=== PATIENT | female | born 1985 | race Caucasian/White ===

== ENCOUNTER 2016-07-04 12:30 | Emergency (ER) | payer MEDICAID ==
--- NOTE | 2016-07-04 12:45 | EDPHY ---
HPI/HX/ROS/PE/MDM Narrative: CHIEF COMPLAINT: Multiple syncopal episodes, flu-like symptoms. HPI: The patient is a 30-year-old female who presents via EMS after 2 syncopal episodes earlier today. She first passed out at 0500 this morning while walking to the bathroom. She later passed out again while sitting. She admits severe headache, sore throat, and photophobia She admits to recent sickness including myalgia, fatigue, and congestion. Today she developed a fever and cold sweats. She denies abdominal pain, vomiting, or other complaints. REVIEW OF SYSTEMS: Aside from elements discussed in the HPI, a comprehensive 10-point review of systems was reviewed and is negative. PMH: Orthopedic surgeries. SOCIAL HISTORY: Works for [employer]. PHYSICAL EXAM: General: Patient is alert, in no acute distress. ENT: Eyes are normal to inspection. ENT inspection normal. Neck: Normal inspection. Full range of motion. Respiratory: No respiratory distress. Breath sounds normal bilaterally. Cardiovascular: Regular rate and rhythm. Strong peripheral pulses. Abdomen: The abdomen is nontender to palpation. There are no peritoneal signs. There are normal bowel sounds. Back: Normal to inspection. No tenderness to palpation. Skin: Normal color. No rash. Warm and dry. Extremities: Normal appearance. Full range of motion. Neuro: Oriented x3. Normal motor function. Normal sensory function. Portions of this note were transcribed by an ED scribe. I personally performed the history, physical exam, and medical decision making; and confirm the accuracy of the information in the transcribed note. ED Course: 30-year-old female presents via EMS for multiple syncopal episodes. I met EMS on arrival. She passed out twice this morning, once while walking and once while sitting down. She has been sick recently with flu-like symptoms including fever, myalgia, and congestion. She denies vomiting or other complaints. An IV was established and labs ordered. Flu swab obtained. EKG obtained. 1L IV saline administered for hydration. EKG was ordered and interpreted by myself. Please see NEXAGE system for official reading. I reviewed the patient's laboratory studies. Flu swab is negative. Lab work is otherwise unremarkable. I have signed the patient out to Dr. Coker at 3pm. - Data Points Laboratory Results: Laboratory Results 07/04/16 12:30 07/04/16 12:30 07/04/16 07/04/16 07/04/16 12:30 12:30 12:30 WBC RBC Hgb Hct MCV MCH MCHC RDW Plt Count MPV Neut % (Auto) Lymph % (Auto) [place] % (Auto) Eos % (Auto) Baso % (Auto) Nucleat RBC Rel Count Absolute Neuts (auto) Absolute Lymphs (auto) Absolute Monos (auto) Absolute Eos (auto) Absolute Basos (auto) Absolute Nucleated RBC Immature Gran % Immature Gran # Sodium 137 mEq/L mEq/L (134-144) Potassium 4.3 mEq/L mEq/L (3.5-5.2) Chloride 98 mEq/L mEq/L (97-110) Carbon Dioxide 26 mEq/l mEq/l (22-31) Anion Gap 13 mEq/L mEq/L (8-16) BUN 11 mg/dL mg/dL (7-23) Creatinine 1.0 mg/dL mg/dL (0.6-1.0) Estimated GFR > 60 Glucose 122 mg/dL H mg/dL (70-100) Calcium 9.4 mg/dL mg/dL (8.5-10.4) Troponin I < 0.012 ng/mL ng/mL (0-0.034) Beta HCG, Qual Pending Influenza Typ A,B (DFA) NEGATIVE FOR FLU (NEGATIVE) 07/04/16 12:30 WBC 9.21 10^3/uL 10^3/uL (3.80-9.50) RBC 4.56 10^6/uL 10^6/uL (4.18-5.33) Hgb 13.4 g/dL g/dL (12.6-16.3) Hct 41.0 % % (38.0-47.0) MCV 89.9 fL fL (81.5-99.8) MCH 29.4 pg pg (27.9-34.1) MCHC 32.7 g/dL g/dL (32.4-36.7) RDW 13.5 % % (11.5-15.2) Plt Count 159 10^3/uL 10^3/uL (150-400) MPV 10.5 fL fL (8.7-11.7) Neut % (Auto) 82.8 % H % (39.3-74.2) Lymph % (Auto) 8.6 % L % (15.0-45.0) [place] % (Auto) 8.0 % % (4.5-13.0) Eos % (Auto) 0.1 % L % (0.6-7.6) Baso % (Auto) 0.2 % L % (0.3-1.7) Nucleat RBC Rel Count 0.0 % % (0.0-0.2) Absolute Neuts (auto) 7.62 10^3/uL H 10^3/uL (1.70-6.50) Absolute Lymphs (auto) 0.79 10^3/uL L 10^3/uL (1.00-3.00) Absolute Monos (auto) 0.74 10^3/uL 10^3/uL (0.30-0.80) Absolute Eos (auto) 0.01 10^3/uL L 10^3/uL (0.03-0.40) Absolute Basos (auto) 0.02 10^3/uL 10^3/uL (0.02-0.10) Absolute Nucleated RBC 0.00 10^3/uL 10^3/uL (0-0.01) Immature Gran % 0.3 % % (0.0-1.1) Immature Gran # 0.03 10^3/uL 10^3/uL (0.00-0.10) Sodium Potassium Chloride Carbon Dioxide Anion Gap BUN Creatinine Estimated GFR Glucose Calcium Troponin I Beta HCG, Qual Influenza Typ A,B (DFA) Medications Given: Discontinued Medications Acetaminophen (Tylenol) 1,000 mg PO EDNOW ONE Stop: 07/04/16 14:16 Last Admin: 07/04/16 14:18 Dose: 1,000 mg Sodium Chloride (Ns) 1,000 mls @ 0 mls/hr IV ONCE ONE PRN Reason: Wide Open Stop: 07/04/16 13:00 Last Admin: 07/04/16 13:02 Dose: 1,000 mls Sodium Chloride (Ns) 1,000 mls @ 0 mls/hr IV ONCE ONE PRN Reason: Wide Open Stop: 07/04/16 14:11 Last Admin: 07/04/16 14:18 Dose: 1,000 mls Ondansetron HCl (Zofran) 4 mg IVP EDNOW ONE Stop: 07/04/16 14:48 Last Admin: 07/04/16 14:54 Dose: 4 mg General Time Seen by Provider: 07/04/16 12:36 Initial Vital Signs: Initial Vital Signs Temperature (C) 37.0 C 07/04/16 12:35 Heart Rate 79 07/04/16 12:35 Respiratory Rate 16 07/04/16 12:35 Blood Pressure 99/59 L 07/04/16 12:35 O2 Sat (%) 100 07/04/16 12:35 O2 Delivery Mode Room Air Allergies/Adverse Reactions: red dye Allergy (Severe, Verified 07/04/16 12:58) Anaphylaxis soy Allergy (Severe, Verified 07/04/16 12:58) Anaphylaxis Home Medications: Medication Instructions Recorded NK [No Known Home Meds] 07/04/16 Departure - Departure Disposition: Home, Routine, Self-Care Clinical Impression: Syncope Qualifiers: Syncope type: unspecified Qualified Code(s): R55 - Syncope and collapse Condition: Good Instructions: Syncope (ED) Additional Instructions: Drink plenty of fluids and be sure to get rest. Follow up with your primary care provider for reevaluation. If you need a primary care provider you have been given the telephone number of Dr. Messer , outpatient medicine. Return for any serious worsening of condition. Referrals: Megan Messer MD [Medical Doctor] - As per Instructions Report Scribed for: Krunal Baltazar Report Scribed by: Shiv Rees Date of Report: 07/04/16 Time of Report: 12:45
[2016-07-04] MEDS ORDERED: NS 1,000 ML IV ONE ×3 (12:59→16:20)
[2016-07-04 13:03] LABS: % IMMATURE GRANULYOCYTES 0.3 % (0.0-1.1); ABSOLUTE IMMATURE GRANULOCYTES 0.03 10^3/uL (0.00-0.10); ADD DIFF? NO; ADD MORPH? NO; ADD SCAN? NO; ATYPICAL LYMPHOCYTE FLAG 0 (0-99); FRAGMENT RBC FLAG 0 (0-99); HEMOGLOBIN 13.4 g/dL (12.6-16.3); LEFT SHIFT FLG 10 (0-99); LIPEMIA HEMOLYSIS FLAG 80 (0-99); MEAN CELL HEMOGLOBIN 29.4 pg (27.9-34.1); MEAN CELL HEMOGLOBIN CONCENTR. 32.7 g/dL (32.4-36.7); MEAN CELL VOLUME 89.9 fL (81.5-99.8); MEAN PLATELET VOLUME 10.5 fL (8.7-11.7); PLATELET CLUMPS FLAG 0 (0-99); PLATELET COUNT 159 10^3/uL (150-400); RED BLOOD CELL COUNT 4.56 10^6/uL (4.18-5.33); RED CELL DISTRIBUTION WIDTH 13.5 % (11.5-15.2)
--- NOTE | 2016-07-04 13:09 | CPEKG ---
Heart Rate: 72 RR Interval: 833 P-R Interval: 124 QRSD Interval: 82 QT Interval: 404 QTC Interval: 443 P [place]: 65 QRS [place]: 63 T Wave [place]: -12 EKG Severity - BORDERLINE ECG - EKG Impression: SINUS RHYTHM EKG Impression: BORDERLINE T ABNORMALITIES, INFERIOR LEADS Electronically Signed By: Krunal Baltazar 04-Jul-2016 15:06:22
[2016-07-04 13:17] LABS: ANION GAP 13 mEq/L (8-16); CALCIUM 9.4 mg/dL (8.5-10.4); CARBON DIOXIDE 26 mEq/l (22-31); CHLORIDE 98 mEq/L (97-110); GLOMERULAR FILTRATION RATE > 60; GLUCOSE 122 mg/dL (70-100); POTASSIUM 4.3 mEq/L (3.5-5.2); SODIUM 137 mEq/L (134-144)
[2016-07-04 13:28] LABS: TROPONIN I < 0.012 ng/mL (0-0.034)
[2016-07-04] MEDS ORDERED: ACETAMINOPHEN 500 MG TAB ONE (14:11)
[2016-07-04] MEDS ORDERED: ACETAMINOPHEN 500 MG TAB PO ONE (14:15)
[2016-07-04] MEDS ORDERED: ONDANSETRON 4 MG/2 ML VIAL IVP ONE (14:47)
[2016-07-04] MEDS ORDERED: KETOROLAC 30 MG/1 ML SDV IVP ONE (14:59)
[2016-07-04] MEDS ORDERED: IBUPROFEN 600 MG TAB PO ONE (16:40)
[2016-07-04 16:53] LABS: COLOR COLORLESS; LEUKOCYTE ESTERASE,URINE NEGATIVE (NEGATIVE); NITRITE,URINE NEGATIVE (NEGATIVE)
[2016-07-04] MEDS ORDERED: IBUPROFEN 200 MG TAB PO ONE (16:55)
[2016-07-04 17:01] VITALS: RESP 16
[2016-07-04 17:56] VITALS: BP 92/59; PULSE 57; TEMP 98.6; O2SAT 95
== END 2016-07-04 17:54 | disposition home or self-care (01) ==
DX: R55 Syncope and collapse (principal)
CPT/HCPCS: 96374; J1885; J2405

== ENCOUNTER 2017-02-19 10:32 | Emergency (ER) | payer OTHER ==
[2017-02-19] MEDS ORDERED: NS 1,000 ML IV ONE (11:22)
[2017-02-19] MEDS ORDERED: RANITIDINE 50 MG/2 ML VIAL IVP ONE (11:22)
[2017-02-19] MEDS ORDERED: methylPREDNISolone SOD SUCC 125 MG/2 ML VIAL IVP ONE (11:22)
--- NOTE | 2017-02-19 11:26 | EDPHY ---
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 She works for [employer] wore new socks yesterday with her boot. Noticed some itching and rash when she took off her socks and foods last night. She took Benadryl and took a cold shower with transient relief. This morning she noticed that the rash returned that her feet started spreading up her legs. She went to the grocery store and as she was exiting noticed that her left ear was really warm and hot to touch. She then started to become short of breath. Her partner drove her emergently to the emergency room. Patient also reports that she took Zyrtec last evening and noticed hives developing on her wrists shortly after. There was a delay in the orders due to downtown. Modifying Factors: Comment: ROS: see HPI Constitutional: No fever, no chills, no weight loss Eyes: No blurred vision Respiratory: No shortness of breath, no cough Cardiovascular: No chest pain Gastrointestinal: No nausea, no vomiting, no diarrhea Genitourinary: No dysuria Extremities: No myalgias Neurologic: No weakness, no numbness Skin: No rashes Hematologic: No bruising, no bleeding MEDICAL/SURGICAL/SOCIAL HISTORY: Medical history: Generally healthy. Does not take any regular medications. 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 Social history: Employed with [employer]. CONSTITUTIONAL: Nontoxic appearing adult white female, awake and alert, no obvious distress HEENT: Atraumatic and normocephalic, PERRL, EOMI. Tympanic membranes clear. Oropharynx clear, no pharyngeal edema, uvula midline, no tongue edema, no exudate and moist pink mucosa. Airway patent. No lymphadenopathy. No meningismus. Cardiovascular: Normal S1/S2, regular rate, regular rhythm, without murmur rub or gallop. PULMONARY/CHEST: Symmetrical and nontender. Clear to auscultation bilaterally. Shallow rapid breathing pattern but with Good air movement. No accessory muscle usage. ABDOMEN: Soft, nondistended, nontender, no rebound, no guarding, no peritoneal signs, no masses or organomegaly. No CVAT. EXTREMITIES: 2/2 pulses, strength 5/5, no deformities, no clubbing, no cyanosis or edema. NEUROLOGICAL: no focal neuro deficits. GCS 15. Speech clear. SKIN: Warm and dry, blanching raised urticaria noted to the tops of her feet extending up into her lower legs bilaterally. no erythema. no rash. Good capillary refill. 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 - Social History Smoking Status: Never smoked Constitutional: Initial Vital Signs O2 Sat (%) 98 02/19/17 11:22 O2 Delivery Mode Room Air O2 (L/minute) 15 Allergies/Adverse Reactions: red dye Allergy (Severe, Verified 07/04/16 12:58) Anaphylaxis soy Allergy (Severe, Verified 07/04/16 12:58) Anaphylaxis Home Medications: Medication Instructions Recorded AZITHROMYCIN [Z-PACK] 250 mg PO DAILY #6 tab 07/04/16 Albuterol [Proventil Inhaler HFA 1 - 2 puffs IH Q4H #1 mdi 07/04/16 (*)] Ibuprofen [Motrin (*)] 800 mg PO Q6-8PRN #7 tab 07/04/16 Ondansetron HCl [Zofran] 4 mg PO Q4-6PRN PRN #10 tablet 07/04/16 guaiFENesin [Guaifenesin ER] 600 mg PO BID #14 tab.er.12h 07/04/16 EPINEPHRINE [EPIPEN] 0.3 mg IM ONCE #2 syr 02/19/17 Famotidine [Pepcid 20 MG (*)] 20 mg PO BID #10 tab 02/19/17 predniSONE [predniSONE TAPER] 10 mg PO DAILY 6 Days ea 02/19/17 Medical Decision Making ED Course/Re-evaluation: Vital signs reviewed upon arrival noted for tachycardia. No hypoxia. Patient immediately placed on non-rebreather mask, telemetry and given IV Solu- Medrol 125 mg, IV Zantac, IV Benadry Signs of anaphylaxis/angioedema/respiratory distress/airway compromise 1220: Reassessed patient and tachycardia has resolved. Rash is improving. No dyspnea. Patient is to find trigger. Will give prednisone taper, Benadryl p.r.n. EpiPen. This patient was seen under the supervision of my secondary supervising physician. Patient's presentation, labs/imaging, treatment and plan of care were discussed with secondary supervising physician. Differential Diagnosis: Differential diagnosis includes but is not limited to angioedema, contact dermatitis, allergic reaction, anaphylaxis. - Data Points Laboratory Results: Laboratory Results 02/19/17 11:54 02/19/17 11:54 02/19/17 02/19/17 02/19/17 11:54 11:54 11:54 WBC 5.57 10^3/uL 10^3/uL (3.80-9.50) RBC 4.04 10^6/uL L 10^6/uL (4.18-5.33) Hgb 12.4 g/dL L g/dL (12.6-16.3) Hct 36.2 % L % (38.0-47.0) MCV 89.6 fL fL (81.5-99.8) MCH 30.7 pg pg (27.9-34.1) MCHC 34.3 g/dL g/dL (32.4-36.7) RDW 12.7 % % (11.5-15.2) Plt Count 194 10^3/uL 10^3/uL (150-400) MPV 10.0 fL fL (8.7-11.7) Neut % (Auto) 77.4 % H % (39.3-74.2) Lymph % (Auto) 17.8 % % (15.0-45.0) [place] % (Auto) 3.8 % L % (4.5-13.0) Eos % (Auto) 0.4 % L % (0.6-7.6) Baso % (Auto) 0.2 % L % (0.3-1.7) Nucleat RBC Rel Count 0.0 % % (0.0-0.2) Absolute Neuts (auto) 4.32 10^3/uL 10^3/uL (1.70-6.50) Absolute Lymphs (auto) 0.99 10^3/uL L 10^3/uL (1.00-3.00) Absolute Monos (auto) 0.21 10^3/uL L 10^3/uL (0.30-0.80) Absolute Eos (auto) 0.02 10^3/uL L 10^3/uL (0.03-0.40) Absolute Basos (auto) 0.01 10^3/uL L 10^3/uL (0.02-0.10) Absolute Nucleated RBC 0.00 10^3/uL 10^3/uL (0-0.01) Immature Gran % 0.4 % % (0.0-1.1) Immature Gran # 0.02 10^3/uL 10^3/uL (0.00-0.10) ESR 42 MM/HR H MM/HR (0-20) Sodium 143 mEq/L mEq/L (134-144) Potassium 4.5 mEq/L mEq/L (3.5-5.2) Chloride 107 mEq/L mEq/L (97-110) Carbon Dioxide 25 mEq/l mEq/l (22-31) Anion Gap 11 mEq/L mEq/L (8-16) BUN 11 mg/dL mg/dL (7-23) Creatinine 0.9 mg/dL mg/dL (0.6-1.0) Estimated GFR > 60 Glucose 86 mg/dL mg/dL (70-100) Calcium 9.0 mg/dL mg/dL (8.5-10.4) Beta HCG, Qual NEGATIVE Medications Given: Discontinued Medications Diphenhydramine HCl (Benadryl Injection) 50 mg IVP EDNOW ONE Stop: 02/19/17 11:23 Last Admin: 02/19/17 11:48 Dose: 50 mg Sodium Chloride (Ns) 1,000 mls @ 0 mls/hr IV ONCE ONE; Wide Open PRN Reason: Protocol Stop: 02/19/17 11:23 Last Admin: 02/19/17 11:48 Dose: 1,000 mls Methylprednisolone Sodium Succinate (Solu-Medrol) 125 mg IVP EDNOW ONE Stop: 02/19/17 11:23 Last Admin: 02/19/17 11:48 Dose: 125 mg Ranitidine HCl (Zantac) 50 mg IVP EDNOW ONE Stop: 02/19/17 11:23 Last Admin: 02/19/17 11:49 Dose: 50 mg Departure - Departure Disposition: Home, Routine, Self-Care Clinical Impression: Allergic urticaria Allergic reaction to chemical substance Qualifiers: Encounter type: initial encounter Injury intent: accidental or unintentional Qualified Code(s): T65.91XA - Toxic effect of unspecified substance, accidental (unintentional), initial encounter Condition: Good Instructions: Diphenhydramine (By mouth), Anaphylaxis (ED) Additional Instructions: Please take all medications as directed. Please find out the materials used to make your socks and avoid them in the future. Stop taking Zyrtec. Start taking Claritin as you have tolerated in the past. Follow up with primary care provider within 3-4 days for close re-evaluation. Referrals: Jeffery Veliz MD [Medical Doctor] - As per Instructions Prescriptions: EPINEPHRINE [EPIPEN] 0.3 mg IM ONCE #2 syr Famotidine [Pepcid 20 MG (*)] 20 mg PO BID #10 tab predniSONE [predniSONE TAPER] 10 mg PO DAILY 6 Days ea
[2017-02-19 12:07] VITALS: RESP 18
[2017-02-19 12:12] LABS: % IMMATURE GRANULYOCYTES 0.4 % (0.0-1.1); ABSOLUTE IMMATURE GRANULOCYTES 0.02 10^3/uL (0.00-0.10); ADD DIFF? NO; ADD MORPH? NO; ADD SCAN? NO; ATYPICAL LYMPHOCYTE FLAG 60 (0-99); FRAGMENT RBC FLAG 0 (0-99); HEMATOCRIT 36.2 % (38.0-47.0); HEMOGLOBIN 12.4 g/dL (12.6-16.3); LEFT SHIFT FLG 0 (0-99); LIPEMIA HEMOLYSIS FLAG 90 (0-99); MEAN CELL HEMOGLOBIN 30.7 pg (27.9-34.1); MEAN CELL HEMOGLOBIN CONCENTR. 34.3 g/dL (32.4-36.7); MEAN CELL VOLUME 89.6 fL (81.5-99.8); PLATELET CLUMPS FLAG 0 (0-99); PLATELET COUNT 194 10^3/uL (150-400); RED BLOOD CELL COUNT 4.04 10^6/uL (4.18-5.33); RED CELL DISTRIBUTION WIDTH 12.7 % (11.5-15.2)
[2017-02-19 12:20] LABS: ANION GAP 11 mEq/L (8-16); CARBON DIOXIDE 25 mEq/l (22-31); CHLORIDE 107 mEq/L (97-110); CREATININE 0.9 mg/dL (0.6-1.0); GLOMERULAR FILTRATION RATE > 60; GLUCOSE 86 mg/dL (70-100); POTASSIUM 4.5 mEq/L (3.5-5.2); SODIUM 143 mEq/L (134-144)
[2017-02-19 12:35] LABS: SEDIMENTATION RATE 42 MM/HR (0-20)
[2017-02-19 13:11] VITALS: BP 100/57; PULSE 66; TEMP 98.6; O2SAT 97
[2017-02-19] MEDS ORDERED: methylPREDNISolone SOD SUCC 125 MG/2 ML VIAL ONE (17:56)
[2017-02-19] MEDS ORDERED: RANITIDINE 50 MG/2 ML VIAL ONE (17:56)
== END 2017-02-19 13:13 | disposition home or self-care (01) ==
DX: L50.0 Allergic urticaria (principal); E86.9 Volume depletion, unspecified
CPT/HCPCS: 96374; J1200; J2780; J2930